=== PATIENT | male | born 1990 | race Caucasian/White ===

== ENCOUNTER 2024-01-26 07:15 | Emergency (ER) | payer SELFPAY ==
[2024-01-26 07:21] VITALS: BP 122/88; PULSE 80; RESP 18; TEMP 99.1; BMI 22.6
[2024-01-26] MEDS ORDERED: BUPIVACAINE HCL/PF 0.5% (5MG/ML) 10 ML VIAL ONE (07:26)
== END 2024-01-26 08:05 | disposition home or self-care (01) ==
LOC: JER 07:15
PROC: 3E0T3BZ Introduction of Anesthetic Agent into Peripheral Nerves and Plexi, Percutaneous Approach (ICD-10-PCS; principal; 2024-01-26)
DX: K08.89 Other specified disorders of teeth and supporting structures (principal)
CPT/HCPCS: 99283-25